=== PATIENT | male | born 1985 | race African-American/Black ===

== ENCOUNTER 2016-11-17 19:01 | Emergency (ER) | payer SELFPAY ==
[2016-11-17] MEDS ORDERED: Acetaminophen 500 MG TAB ONE (19:27)
[2016-11-17] MEDS ORDERED: Ibuprofen 800 MG TAB ONE (19:27)
== END 2016-11-17 20:30 | disposition home or self-care (01) ==
LOC: NAV ERS 19:01
DX: B34.9 Viral infection, unspecified (principal); J02.9 Acute pharyngitis, unspecified; F17.210 Nicotine dependence, cigarettes, uncomplicated
CPT/HCPCS: 87070; 87077; 87186; 99283

== ENCOUNTER 2024-05-30 10:27 | Emergency (ER) | payer OTHER, SELFPAY ==
[2024-05-30] MEDS ORDERED: Bacitracin 1 PK ONE (11:32)
[2024-05-30] MEDS ORDERED: Cephalexin 250 MG CAP ONE (12:11)
== END 2024-05-30 12:19 | disposition home or self-care (01) ==
LOC: NAV ERS 10:27
DX: S68.111A Complete traumatic metacarpophalangeal amputation of left index finger, initial encounter (principal); F17.210 Nicotine dependence, cigarettes, uncomplicated; X58.XXXA Exposure to other specified factors, initial encounter
CPT/HCPCS: 99283